=== PATIENT | male | born 1975 | race African-American/Black ===

== ENCOUNTER → 2018-01-01 | Outpatient (CLI) | payer OTHER ==
[~2018-01-01] MED LIST: GADOBUTROL 7.5 MMOL/7.5 ML PFS ONE; LIDOCAINE 2%, 20ML ONE
== END | disposition home or self-care (01) ==
LOC: RAD 09:47
PROVIDERS: ATTEND Family Medicine Adult Medicine
DX: M17.11 Unilateral primary osteoarthritis, right knee (principal)
CPT/HCPCS: 73723; A9585; J3490